=== PATIENT | female | born 1975 | race Caucasian/White ===

== ENCOUNTER 2018-07-19 09:29 | Emergency (ER) | payer OTHER ==
[2018-07-19 09:43] VITALS: BP 107/76; PULSE 87; TEMP 98.6; BMI 31.8
--- NOTE | 2018-07-19 09:57 | PDOC ---
History of Present Illness - General Chief Complaint: Pain Stated Complaint: TWISTED LEFT ANKLE AND FOOT LAST NIGHT Time Seen by Provider: 07/19/18 09:50 - History of Present Illness Initial Comments: 07/19/18 09:58 Left ankle History of present illness: Patient stepped in a hole last night, twisting left ankle. Today complains of pain laterally, difficulty weightbearing. Review of systems: No injury or pain to the knee, calf, or foot. No distal numbness tingling pain or weakness. Prior sprain of the same ankle. Denies the possibility of . Past medical history, family history, social history reviewed and noncontributory to this illness Physical exam: Alert and oriented well-developed well-nourished no acute distress cooperative Afebrile, vital signs normal Left ankle: There is swelling and point tenderness over the lateral malleolus and anterolateral ankle ligaments. There is no deformity or instability. There is no fifth metatarsal swelling or tenderness. Pulses full. No distal sensory or motor deficits. Impression: Probable sprain, rule out fracture of the distal fibula Plan: X-ray and further orthopedic management depending on results. Past History - Past Medical History Allergies/Adverse Reactions: Allergies Allergy/AdvReac Type Severity Reaction Status Date / Time No Known Allergies Allergy Verified 07/19/18 09:31 Home Medications: Ambulatory Orders Albuterol 0.083% Nebulizer Janee [Ventolin 0.083% Nebulizer Soln -] 1 neb NEB Q6H #1 box 07/04/14 Budesonide/Formeterol Fumarate [SYMBICORT 160/4.5mcg -] 1 inh PO BID 08/19/14 predniSONE [Deltasone -] 40 mg PO DAILY #4 tablet 08/19/14 Dicyclomine HCl [Bentyl] 20 mg PO Q6H PRN #20 tablet 04/06/15 Ondansetron HCl [Zofran] 4 mg PO BID PRN #10 tablet 04/06/15 Prednisone [Deltasone] 2 tab PO DAILY #10 tablet 08/09/15 Albuterol Sulfate Inhaler - [Ventolin HFA Inhaler -] 2 inh PO Q4H #1 inh predniSONE [Deltasone -] 40 mg PO DAILY #8 tablet 01/15/16 Asthma: Yes COPD: No - Immunization History Immunization Up to Date: Yes - Suicide/Smoking/Psychosocial Hx Smoking Status: No Smoking History: Never smoked Have you smoked in the past 12 months: No Number of Cigarettes Smoked Daily: 0 Information on smoking cessation initiated: No Hx Alcohol Use: No Drug/Substance Use Hx: No *Physical Exam - Vital Signs Last Vital Signs Temp Pulse Resp BP Pulse Ox 98.6 F 87 16 107/76 97 07/19/18 09:30 07/19/18 09:30 07/19/18 09:30 07/19/18 09:30 07/19/18 09:30 Moderate Sedation - Procedure Monitoring Vital Signs: Procedure Monitoring Vital Signs Temperature 98.6 F 07/19/18 09:30 Pulse Rate 87 07/19/18 09:30 Respiratory Rate 16 07/19/18 09:30 Blood Pressure 107/76 07/19/18 09:30 O2 Sat by Pulse Oximetry (%) 97 07/19/18 09:30 Medical Decision Making - Medical Decision Making 07/19/18 10:47 X-ray negative Maxwell wrap applied. Or comfortable afterwards. No distal numbness tingling or pain. Good toe motion. Instructions and follow-up if no improvement. Adequately ambulatory with family at discharge. *DC/Admit/Observation/Transfer Diagnosis at time of Disposition: Ankle sprain Qualifiers: Encounter type: initial encounter Involved ligament of ankle: tibiofibular ligament Laterality: left Qualified Code(s): S93.432A - Sprain of tibiofibular ligament of left ankle, initial encounter - Discharge Dispostion Disposition: HOME Condition at time of disposition: Stable Decision to Admit order: No - Referrals Referrals: Johnie Hair MD [Staff Physician] - 1 week - Patient Instructions Printed Discharge Instructions: DI for Ankle Sprain, How to Apply an Maxwell Wrap - Post Discharge Activity
== END 2018-07-19 10:51 | disposition home or self-care (01) ==
LOC: FER 09:29
DX: S93.432A Sprain of tibiofibular ligament of left ankle, initial encounter (principal); X58.XXXA Exposure to other specified factors, initial encounter; Y93.89 Activity, other specified; Y92.9 Unspecified place or not applicable; J45.909 Unspecified asthma, uncomplicated
CPT/HCPCS: 73610-TC-LT-FY; 99283-25

== ENCOUNTER 2019-01-27 21:59 | Emergency (ER) | payer OTHER ==
[2019-01-27 22:06] VITALS: BP 100/60; BMI 32.2
--- NOTE | 2019-01-27 23:39 | PDOC ---
History of Present Illness - General Chief Complaint: Scabies Stated Complaint: SCABIES Time Seen by Provider: 01/27/19 22:17 - History of Present Illness Initial Comments: This 43-year-old woman with a history of asthma presents with a 3 day history of pruritic, erythematous rash of her neck, bilateral arms and upper legs. Her daughter(lives with the patient) works in a shelter and was diagnosed 1 week ago with scabies. She has been treated with permethrin and has minimal rash at this time. The patient has no previous history of scabies or pruritic rash. She states that she shares clothing with her daughter. Past History - Past Medical History Allergies/Adverse Reactions: Allergies Allergy/AdvReac Type Severity Reaction Status Date / Time No Known Allergies Allergy Verified 07/19/18 09:31 Home Medications: Ambulatory Orders Budesonide/Formeterol Fumarate [SYMBICORT 160/4.5mcg -] 1 inh PO BID 08/19/14 Albuterol Sulfate Inhaler - [Ventolin HFA Inhaler -] 2 inh PO Q4H #1 inh Permethrin 5% Topical Cream [Elimite -] 1 applic TP ONCE #1 tube 01/28/19 Asthma: Yes COPD: No - Immunization History Immunization Up to Date: Yes - Suicide/Smoking/Psychosocial Hx Smoking Status: No Smoking History: Never smoked Have you smoked in the past 12 months: No Number of Cigarettes Smoked Daily: 0 Hx Alcohol Use: No Drug/Substance Use Hx: No Review of Systems - Review of Systems Able to Perform ROS?: Yes Comments:: 12 point review of systems is negative except for what is noted in the history of present illness *Physical Exam - Vital Signs Last Vital Signs Temp Pulse Resp BP Pulse Ox 16 100/60 01/27/19 22:01 01/27/19 22:01 - Physical Exam Comments: GENERAL: Adult female, in mild distress secondary to pruritic rash HEAD: Normal with no signs of trauma. EYES: PERRLA, EOMI, sclera anicteric, conjunctiva clear NEUROLOGICAL: Cranial nerves II through XII grossly intact. Normal speech. No focal neurological deficits. 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 Physical exam consistent with scabies. Patient will be treated with permethrin 5% cream to be used overnight. The patient already has an appointment scheduled with her corporate treasurer on February 01. *DC/Admit/Observation/Transfer Diagnosis at time of Disposition: Scabies - Discharge Dispostion Disposition: HOME Condition at time of disposition: Stable - Prescriptions Prescriptions: Permethrin 5% Topical Cream [Elimite -] 1 applic TP ONCE #1 tube - Referrals Referrals: Kobe Arrieta MD [Primary Care Provider] - - Patient Instructions Printed Discharge Instructions: Scabies Additional Instructions: Apply permethrin cream overnight and wash off in the morning Benadryl 25 mg every 4-6 hours as needed for residual itching (may feel sleepy after taking this medication) Follow-up with your corporate treasurer on February 01 as already scheduled - Post Discharge Activity
== END 2019-01-28 00:42 | disposition home or self-care (01) ==
LOC: FER 21:59
DX: B86 Scabies (principal)
CPT/HCPCS: 99281-25

== ENCOUNTER 2019-07-11 18:53 | Emergency (ER) | payer OTHER ==
[2019-07-11 19:16] VITALS: TEMP 98.9; BMI 32.8
--- NOTE | 2019-07-11 19:59 | PDOC ---
Documentation entered by Sheridan Kramer SCRIBE, acting as scribe for Coty Grigsby MD. Coty Grigsby MD: This documentation has been prepared by the Williams ladd Aiswarya, SCRIBE, under my direction and personally reviewed by me in its entirety. I confirm that the documentation accurately reflects all work, treatment, procedures, and medical decision making performed by me. History of Present Illness - General Chief Complaint: Respiratory Stated Complaint: SHORT OF BREATH CHEST PAIN Time Seen by Provider: 07/11/19 18:59 History Source: Patient Exam Limitations: No Limitations - History of Present Illness Initial Comments: 07/11/19 19:52 The patient is a 44 year old female, with a significant PMH of asthma, who presents to the emergency department with chest pain that began yesterday. The patient describes the pain as heavy, intermittent and non radiating in nature that is located to the anterior chest wall. She states she went to her PCP to be cleared for polyp removal 1 month ago where she was referred to a air sealing technician for an abnormal EKG. She states she went to the air sealing technician and a stress test was done which was also abnormal. Patient states chest pain has progressively worsened today and endorses mild back pain. The patient denies blood clots in the past, headache and dizziness. Denies fever, chills, nausea, vomit, diarrhea and constipation. PAST MEDICAL HISTORY: no significant history PAST SURGICAL HISTORY: no significant history FAMILY HISTORY: no pertinent history SOCIAL HISTORY: Pt lives with family and is employed. MEDICATIONS: reviewed ALLERGIES: As per nursing notes Adult ROS General: No fevers or chills, no weakness, no weight loss HEENT: No change in vision. No sore throat,. No ear pain CardioVascular: +chest pain. Respiratory:No cough, or wheezing. Gastrointestinal: no nausea, vomiting, diarrhea or constipation, No rectal bleeding Genitourinary: No dysuria, hematuria, or frequency Musculoskeletal: +back pain Neurologic: No headache, vertigo, dizziness or loss of consciousness Psychiatric: nor depression Skin: No rashes or easy bruising Endocrine: no increased thirst or abnormal weight change Allergic: no skin or latex allergy All other systems reviewed and normal Adult Exam: General: Well-nourished well-developed individual, no acute distress HEENT: Throat: Normal, tonsils normal, no erythema or exudate Neck: Supple, no meningeal signs, no lymphadenopathy Eyes::Pupils equal reactive and round, extraocular motion intact Chest: Nontender to palpation Cardiac: S1-S2 normal, regular rate and rhythm, no murmurs rubs or gallops Respiratory: Lungs clear to auscultation bilateral Abdomen: Soft, nondistended, normal bowel sounds, nontender to palpation diffusely Extremities: Warm, dry, no cyanosis, clubbing, or edema Skin: No rashes Neuro: Alert and oriented x3, nonfocal exam, grossly intact, normal gait Psych: Normal mood and affect 07/11/19 19:57 Assessment and plan: This is a 44-year-old female who comes in complaining of intermittent but nearly constant over the last 2 to 3 days chest heaviness associated with shortness of breath. Patient is currently undergoing a work-up for these symptoms as they have been persistent over the last several months. Patient has had a stress test and 2 EKGs and a cardiology evaluation. Patient reports that she was told they were abnormal but does not know what was abnormal about them. Patient is scheduled for a CAT scan or possibly MRI of her heart to rule out blockages. As per patient. Patient has not had a evaluation for pulmonary embolism so well send off cardiac enzymes CBC comp and do a CT angios of her chest to rule out PE. Patient's EKG showed normal sinus rhythm at a rate of [address]-T wave changes was a normal EKG. 07/11/19 22:35 CAT scan showed no evidence of pulmonary embolism or any acute pathology there was a small hiatal hernia with a polyp within the hernia that was recommended that patient follow-up with GI for possible endoscopy. Patient discharged home told to follow-up with her air sealing technician. Patient given copies of her CAT scan and EKG Given the fact that patient has had this chest pain now for several weeks and intermittent for several months and a normal troponin, normal EKG and unremarkable CT of her chest . The chest pain is of uncertain etiology but does not appear to be cardiac or pulmonary in origin. Past History - Past Medical History Allergies/Adverse Reactions: Allergies Allergy/AdvReac Type Severity Reaction Status Date / Time No Known Allergies Allergy Verified 07/19/18 09:31 Home Medications: Ambulatory Orders Albuterol Sulfate Inhaler - [Ventolin Hfa Inhaler -] 1 puff IH PRN PRN 11/25/16 Budesonide/Formeterol Fumarate [SYMBICORT 160/4.5mcg -] 1 inh PO BID 11/25/16 Asthma: Yes COPD: No - Immunization History Immunization Up to Date: Yes - Psycho Social/Smoking Cessation Hx Smoking Status: No Smoking History: Never smoked Have you smoked in the past 12 months: No Number of Cigarettes Smoked Daily: 0 Hx Alcohol Use: No Drug/Substance Use Hx: No Substance Use Type: None *Physical Exam - Vital Signs Last Vital Signs Temp Pulse Resp BP Pulse Ox 98.9 F 88 16 125/81 100 07/11/19 18:55 07/11/19 18:55 07/11/19 18:55 07/11/19 18:55 07/11/19 18:55 ED Treatment Course - LABORATORY CBC & Chemistry Diagram: 07/11/19 19:25 07/11/19 19:25 Discharge - Discharge Information Problems reviewed: Yes Clinical Impression/Diagnosis: Chest pain Qualifiers: Chest pain type: unspecified Qualified Code(s): R07.9 - Chest pain, unspecified Condition: Stable Disposition: HOME - Admission No - Follow up/Referral Referrals: Kobe Arrieta MD [Primary Care Provider] - - Patient Discharge Instructions Additional Instructions: It is important that you call your air sealing technician next week and follow-up if you are still experiencing chest discomfort. Return to the emergency department immediately with ANY new, persistent or worsening symptoms. Continue any medications as previously prescribed by your physician. You should follow up with your primary doctor as soon as possible regarding today's emergency department visit. . Please make sure your doctor reviews the results of your emergency evaluation. Thank you for coming to the Emergency Department today for your care. It was a pleasure to see you today. Please note that your evaluation is INCOMPLETE until you follow-up with your doctor. - Post Discharge Activity
[2019-07-11 20:07] LABS: BASO % 1.3 % (0-2.0); EOS % 6.3 % (0-4.5); HEMATOCRIT 41.3 % (32.4-45.2); HEMOGLOBIN 13.7 GM/dl (10.7-15.3); LYMPH % 29.8 % (8-40); MCH 29.5 pg (25.7-33.7); MEAN CELL VOLUME 89.4 fl (80-96); MEAN PLT VOLUME 10.3 fl (7.5-11.1); MONO % 8.5 % (3.8-10.2); NEUT % 54.1 % (42.8-82.8); PLATELET COUNT 209 K/MM3 (134-434); RBC 4.62 M/mm3 (3.60-5.2); RDW 12.3 % (11.6-15.6); WHITE BLOOD COUNT 7.4 K/mm3 (4.0-10.8)
[2019-07-11 20:21] LABS: ALBUMIN 4.1 g/dl (3.4-5.0); BILIRUBIN,TOTAL 0.9 mg/dl (0.2-1); CREATININE 0.8 mg/dl (0.55-1.3); POTASSIUM 3.7 mmol/L (3.5-5.1); TOT PROT 7.5 g/dl (6.4-8.2)
[2019-07-11 22:49] VITALS: BP 121/75; PULSE 89
--- NOTE | 2019-07-12 11:25 | EKG ---
Test Reason : Blood Pressure : / mmHG Vent. Rate : 076 BPM Atrial Rate : 076 BPM P-R Int : 120 ms QRS Dur : 082 ms QT Int : 380 ms P-R-T Axes : 072 062 037 degrees QTc Int : 427 ms NORMAL SINUS RHYTHM NORMAL ECG WHEN COMPARED WITH ECG OF 06-APR-2015 13:57, NO SIGNIFICANT CHANGE WAS FOUND Confirmed by KUSHAL HOOKS MD ([id number]) on 07/12/2019 11:24:37 AM Referred By: MD SHAH Confirmed By:KUSHAL HOOKS MD
== END 2019-07-11 22:49 | disposition home or self-care (01) ==
LOC: FER 18:53
DX: R07.9 Chest pain, unspecified (principal); J45.909 Unspecified asthma, uncomplicated
CPT/HCPCS: 36415; 71275-TC; 80053; 82550; 84484; 85025; 93005; 99284-25

== ENCOUNTER 2019-08-13 06:10 | Day surgery (SDC) | payer OTHER ==
[2019-08-09 13:04] VITALS: BMI 34.2
[2019-08-13] MEDS ORDERED: IBUPROFEN 800 MG/8 ML IJ IVPB PRN (07:02)
[2019-08-13] MEDS ORDERED: IBUPROFEN 600 MG TABLET (FP) PO PRN (07:02)
--- NOTE | 2019-08-13 07:02 | HP ---
History & Physical Update - History History: No Change - Physical Physical: No Change - Assessment Assessment: No Change - Plan Plan: No Change (No change in HP)
[2019-08-13] MEDS ORDERED: LACTATED RINGERS SOLUTION 1,000 ML IV SCH ×2 (07:15→09:15)
[2019-08-13] MEDS ORDERED: ceFAZolin 2 GRAM PREMIX BAG IVPB ONE (08:15)
[2019-08-13] MEDS ORDERED: BUPIVACAINE HCL/PF 0.5% (5 MG/ML) 30 ML VIAL IJ ONE (08:45)
[2019-08-13] MEDS ORDERED: ONDANSETRON 4 MG/2 ML VIAL IVPUSH PRN (09:01)
--- NOTE | 2019-08-13 09:26 | OP ---
Operative Note - Note: Operative Date: 08/13/19 Pre-Operative Diagnosis: uterine polyps. elective sterilization Operation: hysteroscopy with excision of polyp. Dilation curetage and suction. Bilateral salpingectomy Post-Operative Diagnosis: Same as Pre-op Surgeon: Kaelyn Arredondo [employer] Supervisor: Maria A Gutierrez Anesthesiologist/REAL ESTATE FIRM MANAGER: Isidoro Shepard Anesthesia: General, Local Specimens Removed: bilateral fallopian tubes. Uterine polyp Estimated Blood Loss (mls): 10 Operative Report Dictated: Yes
--- NOTE | 2019-08-13 09:34 | SURG ---
Surgery Cattyman Note Cattyman: Maria A Gutierrez PA-C Date of Service: 08/13/19 Diagnosis: uterine polyps. elective sterilization Procedure: hysteroscopy with excision of polyp. Dilation curetage and suction. Bilateral salpingectomy I was present for the entirety of the operative procedure. For further detail, please refer to operative report. Visit type - Case Type Case Type: Scheduled - Emergency Emergency Visit: No - New patient This patient is new to me today: Yes Date on this admission: 08/13/19
[2019-08-13 13:57] VITALS: BP 112/80; PULSE 78; TEMP 98
--- NOTE | 2019-08-14 07:37 | OP ---
DATE OF OPERATION: 08/13/2019 PREOPERATIVE DIAGNOSES: Endometrial polyp, and voluntary sterilization. OPERATION: Hysteroscopic myomectomy, suction dilatation and curettage, an laparoscopic bilateral salpingectomy. SURGEON: Kaelyn Arredondo MD OLIVE GRADER: MARLIN Roberto ANESTHESIA: General. ESTIMATED BLOOD LOSS: 10 mL. DESCRIPTION OF PROCEDURE: The patient was taken to the operating room, placed in the dorsal lithotomy position, prepped and draped in the usual sterile fashion. A time-out was performed in accordance with hospital regulation. A speculum was placed in the vagina. The anterior lip of the cervix was grasped with a single-tooth tenaculum. The cervix was then dilated to accommodate the operative hysteroscope. Visualization revealed an endometrial polyp noted on the posterior wall of the uterus. Cautery and cutting of the endometrial polyp was done by the operative hysteroscope, followed by a D&C. No other polyps seen. Suction D&C was performed and specimen submitted to pathology. Attention was then drawn to the umbilicus, where a 5-mm umbilical incision was made. Veress needle was inserted into the cavity. Approximately 3 to 4 liters of CO2 was insufflated into the cavity. The Veress needle was then removed, and a 5-mm trocar was then inserted. The laparoscope and camera attached. Visualization revealed normal tubes and ovaries. Two trocars were placed in the left lower quadrant and right lower quadrant 5-mm incisions were made and trocars were inserted under direct visualization. Grasper and ligature were then used to grasp the left tube. Cautery and cutting of the left fallopian tube was then done. The specimen was removed and submitted to Pathology. Attention was then drawn to the right side, where the fallopian tube was grasped. Cautery and cutting of tube was done down to the fimbriated end. The tube was then removed and submitted to Pathology. Hemostasis was achieved. All instruments were then removed. The CO2 was removed from the abdomen. The incisions were then closed using 4-0 Biosyn suture in subcuticular fashion. The wounds were washed and dressed. Estimated blood loss was less than 10 mL. KAELYN ARREDONDO M.D. ISAÍAS/[id number] [facility]
--- NOTE | 2019-08-14 11:34 | PATH ---
Surgical Pathology Report Patient Name: WILLIE RODRIGUEZ [facility]. Rec. #: [id number] /Age/Gender: 1975 (Age: 44) / F Account: [id number] Location: [facility] SURGICAL Taken: 08/13/2019 Received: 08/13/2019 Reported: 08/14/2019 Physicians: Kaelyn Arredondo M.D. Specimen(s) Received A: ENDOMETRIAL POLYP B: ENDOMETRIAL CURETTINGS C: RIGHT FALLOPIAN TUBE D: LEFT FALLOPIAN TUBE Clinical History Pelvic pain, fibroids Final Diagnosis A. ENDOMETRIAL POLYP, POLYPECTOMY: ENDOMETRIAL POLYPS. B. ENDOMETRIAL CURETTINGS: FRAGMENTS OF SECRETORY TYPE ENDOMETRIUM WITH FOCAL STROMAL BREAKDOWN. C. RIGHT FALLOPIAN TUBE, SALPINGECTOMY: PORTION OF FALLOPIAN TUBE WITH ENDOSALPINGIOSIS. COMPLETE CROSS SECTION OF THE FALLOPIAN TUBE LUMEN IDENTIFIED. D. LEFT FALLOPIAN TUBE, SALPINGECTOMY: PORTIONS OF FALLOPIAN TUBE WITH NO SIGNIFICANT PATHOLOGIC CHANGE. COMPLETE CROSS SECTION OF THE FALLOPIAN TUBE LUMEN IDENTIFIED. Electronically Signed Melissa Phelan M.D. Gross Description A. Received in formalin labeled "endometrial polyp," are 2 monroe-pink portions of soft tissue measuring 0.4 and 0.5 cm in greatest dimension. The specimens are submitted in toto in one cassette. B. Received in formalin labeled "endometrial curettings," is a 3.3 x 2.3 x 0.3 cm aggregate of red-brown soft tissue fragments. The formalin is filtered and the specimen is entirely submitted in 2 cassettes. C. Received in formalin labeled "right fallopian tube," is a 4.5 cm in length fimbriated fallopian tube. The outer surface is goss purple and smooth. Sectioning reveals an unremarkable fallopian tube lumen. Sleep Medicine Physician sections are submitted in 2 cassettes as follows: 1-fimbria; 2-cross sections of fallopian tube. D. Received in formalin labeled "left fallopian tube," are 2 portions of fallopian tube measuring 1.5 and 2.5 cm in length. The longer portion displays attached fimbria. The outer surfaces are monroe-pink and smooth. Sectioning reveals unremarkable fallopian tube lumen. Sleep Medicine Physician sections are submitted in 2 cassettes as follows: 1-fimbria; 2-cross sections of fallopian tube. /08/13/2019 saudi08/13/2019
== END 2019-08-13 13:40 | disposition home or self-care (01) ==
LOC: JASU-SURG 06:10
PROVIDERS: ATTEND Obstetrics & Gynecology
PROC: 0UB74ZZ Excision of Bilateral Fallopian Tubes, Percutaneous Endoscopic Approach (ICD-10-PCS; principal; 2019-08-13 07:30)
PROC: 0UB98ZX Excision of Uterus, Via Natural or Artificial Opening Endoscopic, Diagnostic (ICD-10-PCS; 2019-08-13 07:30)
PROC: 0UDB8ZX Extraction of Endometrium, Via Natural or Artificial Opening Endoscopic, Diagnostic (ICD-10-PCS; 2019-08-13 07:30)
DX: N84.0 Polyp of corpus uteri (principal); Z30.2 Encounter for sterilization
CPT/HCPCS: 36415; 84702; 86850; 86900; 86901; 88302-TC; 88305-TC; 94760

== ENCOUNTER 2020-07-21 20:20 | Emergency (ER) | payer OTHER ==
[2020-07-21 20:36] VITALS: BP 128/79; PULSE 104; TEMP 97.8; BMI 33.2
[2020-07-21] MEDS ORDERED: methylPREDNISolone NA SUCC 125 MG/2 ML VIAL IVPB ONE (20:41)
[2020-07-21] MEDS ORDERED: ALBUTEROL SO4 2.5/IPRATROPIUM 0.5 INH SOL 3 ML VIAL.NEB. NEB ONE ×2 (20:42→20:44)
[2020-07-21] MEDS ORDERED: methylPREDNISolone NA SUCC 125 MG/2 ML VIAL ONE (20:44)
== END 2020-07-21 22:31 | disposition home or self-care (01) ==
LOC: FER 20:20
PROC: 3E033NZ Introduction of Analgesics, Hypnotics, Sedatives into Peripheral Vein, Percutaneous Approach (ICD-10-PCS; principal; 2020-07-21)
PROC: 3E033GC Introduction of Other Therapeutic Substance into Peripheral Vein, Percutaneous Approach (ICD-10-PCS; 2020-07-21)
PROC: 3E0F7GC Introduction of Other Therapeutic Substance into Respiratory Tract, Via Natural or Artificial Opening (ICD-10-PCS; 2020-07-21)
DX: J45.901 Unspecified asthma with (acute) exacerbation (principal)
CPT/HCPCS: 99285-25

== ENCOUNTER 2021-04-30 13:54 | Emergency (ER) | payer OTHER ==
[2021-04-30 13:58] VITALS: BP 125/73; PULSE 94; TEMP 99; BMI 32.8
[2021-04-30] MEDS ORDERED: FAMOTIDINE 20 MG/50 ML IVPB 20 MG/50 ML MG IVPB ONE ×2 (14:13→14:38)
[2021-04-30] MEDS ORDERED: SODIUM CHLORIDE 1,000 ML IV STA (14:13)
[2021-04-30] MEDS ORDERED: MAG HYDROX/AL HYDROX/SIMETH -MYLANTA- ORAL SUSPENSION PO ONE (14:13)
[2021-04-30] MEDS ORDERED: ACETAMINOPHEN 325 MG TABLET (FP) PO ONE (14:14)
[2021-04-30] MEDS ORDERED: ACETAMINOPHEN 325 MG TABLET (FP) ONE (14:38)
[2021-04-30] MEDS ORDERED: MAG HYDROX/AL HYDROX/SIMETH 30 ML UNIT-DOSE CUP ONE (14:39)
[2021-04-30] MEDS ORDERED: ACETAMINOPHEN 1000 MG/100 ML VIAL (NON FORMULARY) IVPB ONE (14:47)
[2021-04-30 15:04] LABS: MCH 30.1 pg (25.7-33.7); WHITE BLOOD COUNT 7.8 K/mm3 (4.0-10.8)
[2021-04-30 15:08] LABS: BASO % 2.5 % (0-2.0); EOS % 4.6 % (0-4.5); HEMOGLOBIN 14.1 GM/dl (10.7-15.3); MCHC 33.7 g/dl (32.0-36.0); MEAN CELL VOLUME 89.1 fl (80-96); MEAN PLT VOLUME 10.9 fl (7.5-11.1); MONO % 7.4 % (3.8-10.2); NEUT % 68.5 % (42.8-82.8); PLATELET COUNT 233 10^3/uL (134-434); RBC 4.71 M/mm3 (3.60-5.2); RDW 12.2 % (11.6-15.6)
[2021-04-30 15:14] LABS: BILIRUBIN,TOTAL 0.7 mg/dl (0.2-1); CREATININE 0.7 mg/dl (0.55-1.3); TOT PROT 7.4 g/dl (6.4-8.2)
[2021-04-30 16:01] LABS: LIPASE 90 U/L (73-393)
== END 2021-04-30 20:20 | disposition home or self-care (01) ==
LOC: FER 13:54
PROC: 3E033NZ Introduction of Analgesics, Hypnotics, Sedatives into Peripheral Vein, Percutaneous Approach (ICD-10-PCS; principal; 2021-04-30)
PROC: 3E0337Z Introduction of Electrolytic and Water Balance Substance into Peripheral Vein, Percutaneous Approach (ICD-10-PCS; 2021-04-30)
DX: R10.9 Unspecified abdominal pain (principal)
CPT/HCPCS: 36415; 71046-TC-FY; 74177-TC; 76705-TC; 80053; 81003; 82550; 82553; 83690; 84484; 85025; 87086; 93005; 99285-25; Q9967

== ENCOUNTER 2023-12-19 04:13 | Day surgery (SDC) | payer OTHER ==
[2023-12-14 14:09] VITALS: BMI 31.4
[2023-12-19] MEDS ORDERED: ACETAMINOPHEN 325 MG TABLET (FP) PO PRN (07:08)
[2023-12-19] MEDS ORDERED: IBUPROFEN 400 MG TABLET (FP) PO PRN (07:08)
[2023-12-19] MEDS ORDERED: ONDANSETRON 4 MG/2 ML VIAL IVPUSH PRN (07:10)
[2023-12-19] MEDS ORDERED: oxyCODONE HCL 5 MG TABLET PO PRN (07:10)
[2023-12-19] MEDS ORDERED: LACTATED RINGERS SOLUTION 1,000 ML IV SCH (07:15)
[2023-12-19] MEDS ORDERED: ceFAZolin SODIUM 1 GM VIAL ONE (07:21)
[2023-12-19] MEDS ORDERED: PROPOFOL 20 ML ONE (07:21)
[2023-12-19] MEDS ORDERED: MIDAZOLAM HCL 2 MG/2 ML SINGLE DOSE VIAL ONE (07:22)
[2023-12-19] MEDS ORDERED: SUCCINYLCHOLINE CHLORIDE 200 MG/10 ML SYRINGE ONE (07:22)
[2023-12-19] MEDS ORDERED: FENTANYL CITRATE/PF 50 MCG/ML VIAL ONE (07:22)
[2023-12-19] MEDS ORDERED: ACETAMINOPHEN INJECTION 100 ML IVPB ONE (09:38)
[2023-12-19] MEDS: ACETAMINOPHEN 1000 MG/100 ML BAG IVPB ONE (09:45)
[2023-12-19 12:20] VITALS: RESP 18; TEMP 98.3
[2023-12-19 12:53] VITALS: BP 130/59; PULSE 100
== END 2023-12-19 13:08 | disposition home or self-care (01) ==
LOC: JASUSAT 04:13
PROVIDERS: ATTEND Obstetrics & Gynecology
PROC: 0UBC8ZZ Excision of Cervix, Via Natural or Artificial Opening Endoscopic (ICD-10-PCS; principal; 2023-12-19 07:30)
PROC: 0UB98ZZ Excision of Uterus, Via Natural or Artificial Opening Endoscopic (ICD-10-PCS; 2023-12-19 07:30)
DX: N84.0 Polyp of corpus uteri (principal); N84.1 Polyp of cervix uteri
CPT/HCPCS: 81025; 88305-TC; 94760; J0131